=== PATIENT | male | born 1995 | race African-American/Black ===

== ENCOUNTER → 2019-02-22 | Outpatient (CLI) | payer OTHER ==
--- NOTE | 2019-02-19 08:53 | NUR ---
LEFT MSG ON THE MACHINE FOR PT TO CALL BACK AND LEFT NUMBER.
[~2019-02-22] VITALS: Ht 190.5 cm; Wt 87.9 kg
[~2019-02-22] MED LIST: LEXAPRO20 MG PO; REMERON 15M15 MG/TA1 PO
[2019-02-22 09:34] VITALS: BP 139/92; PULSE 66
[2019-02-22 10:25] VITALS: BP 138/93; PULSE 63
== END ==
LOC: COL.RAD 09:00
DX: E04.1 Nontoxic single thyroid nodule (principal); Z90.89 Acquired absence of other organs

== ENCOUNTER 2019-02-27 10:32 | Day surgery (SDC) | payer OTHER ==
[2019-02-27] VITALS (9 sets, daily range): BP systolic 131–152; BP diastolic 77–97; PULSE 67–81; TEMP 98–98.2
[~2019-02-27] VITALS: Ht 189.2 cm; Wt 88.7 kg
--- NOTE | 2019-02-27 11:11 | NUR ---
TO RM AT 1038- NO FAMILY WITH PATIENT AT THIS TIME. BROTHER WILL BE IN LATER CALL LIGHT IN REACH
--- NOTE | 2019-02-27 19:26 | NUR ---
Pt resting with HOB elevated at 15 degreees. No distress noted. Pt rates pain 5/10 in neck. Pt seems drowsy, but is awake and answers all questions without difficulty. Pt c/o mild itching. Respirations even and unlabored. Lungs clear. BS+. Pt voiding clear, yellow urine. Dressing to neck is clean, dry and intact. Suture removal kit at bedside per MD order. SCDs in place. IVF infusing to LFA IV site. Post op VSS. No other needs noted. Will continue to monitor.
--- NOTE | 2019-02-27 20:15 | NUR ---
Pt up to bathroom with 1 assist. Pt reports some dizziness upon ambulation that resolves quickly. Voiding clear, yellow urine. HS meds given.
--- NOTE | 2019-02-27 22:52 | NUR ---
Pt c/o pain in neck 05/09 that is intermittent and sharp/throbbing. PRN pain medication given. No distress noted. Pt is awake and alert.
[2019-02-28 00:24] VITALS: BP 145/83; PULSE 73; TEMP 98.1
[2019-02-28 04:00] VITALS: BP 146/78; PULSE 70; TEMP 97.7
--- NOTE | 2019-02-28 04:00 | NUR ---
Pt up to bathroom with 1 assist. Voiding clear, yellow urine. Pt c/o pain. PRN pain medication administered. Ice pack reapplied. No further needs noted.
--- NOTE | 2019-02-28 06:00 | NUR ---
Pt resting this AM. Pt has slept periodically throughout the night. Up x3 to bathroom without difficulty. Dressing clean, dry and intact. Pt has been NPO since midnight. No needs noted.
[2019-02-28 07:27] VITALS: BP 134/64; PULSE 68; TEMP 97.8
--- NOTE | 2019-02-28 09:30 | NUR ---
Patient is sitting up in bed. Minimal complaints of pain. No complaints of nausea. Dressing to neck is C/D/I, neck is soft without edema. Patient denies problems swallowing. Explained when to notify this nurse if having problems. No other changes at this time. Call light within reach.
--- NOTE | 2019-02-28 11:21 | NUR ---
EB student met with patient to discuss discharge plan. Patient lives on [address]. Patient receives primary care at [facility] and also uses the pharmacy at [facility]. Patient does not use any assistive devices and is independent with ADLs. Patient does not have a DPOA-HC completed and is not interested in completing one. Patient plans to return to [place] upon discharge. No identified needs at this time.
--- NOTE | 2019-02-28 11:44 | NUR ---
First visit from the hospital technician. No needs right now.
[2019-02-28 12:09] VITALS: BP 141/78; PULSE 85; TEMP 98.1
[2019-02-28] MEDS ORDERED: NORCO 325 MG-51 TAB PO (14:47)
--- NOTE | 2019-02-28 16:15 | NUR ---
Patient is discharging home. Discharge instructions discussed with patient. No questions verbalized. INT discontinued. Explained when follow up appointment is. Explained he has a prescription to get filled. No questions verbalized. Copies of discharge instructions sent with patient. All belongings packed up and sent with him. [place] walked patient out.
== END 2019-02-28 16:15 | disposition home or self-care (01) ==
LOC: SDCO 10:32 → SURG 16:25 → SDCO 02-28 16:15
DX: E04.1 Nontoxic single thyroid nodule (principal); Z79.899 Other long term (current) drug therapy; G47.30 Sleep apnea, unspecified; F32.9 Major depressive disorder, single episode, unspecified; Z90.89 Acquired absence of other organs; D55.0 Anemia due to glucose-6-phosphate dehydrogenase [G6PD] deficiency
CPT/HCPCS: OP; J1100; J2704; J3010; J7042; J7120